=== PATIENT | male | born 1935 | race Caucasian/White ===

== ENCOUNTER → 2018-12-19 | Outpatient (CLI) | payer OTHER, MEDICARE ==
[~2018-12-19] VITALS: Ht 180.3 cm; Wt 87.5 kg
[~2018-12-19] MED LIST: ALLOPURINOL 10100 M1 PO; AMLODIPINE BESY10 MG PO; APAP500 PO; ASA81BEC PO; ASPIRIN325 PO; ATENOLOL 100MG100 M2 PO; AUGMENTIN 500-1 EACH PO; COUMADIN 2.5MG2.5 M1 PO; COUMADIN 5 MG TA5 M1 PO; HYDROCHLOROTH12.5 M2 PO; K-DUR 20 MEQ T20 MEQ PO; KLOR-CON 1010 MEQ PO; LIPITOR 20 MG T20 M1 PO; LIPITOR10 MG PO; LIPITOR20 MG PO; LOPRESSOR100 M1; LOSARTAN POTAS100 MG PO; LOSARTAN-HCTZ1 EAC1 PO; LOVASTAT10; NORVASC10 MG PO; OXYCODON-ACETA1 EAC1 PO; PREDNISONE 5 MG5 M1 PO; TRINATE TABLET1 TAB PO; VITAMIN B-1100 M1 PO; VITAMIN D-32000 UNIT PO; VITAMIN D1000 UNI1 PO
[2018-12-19 09:32] LABS: INR 1.3; PROTIME 13.6 Seconds (9.3-11.4)
--- NOTE | 2018-12-20 15:05 | PATH ---
[facility] [place] [address] PATHOLOGY RPT PROCEDURE Name: ERLINDA CHIN SCOTT Room #: REG [facility]..#: [id number] ������������������ Admission: 12/19/18 ������������������ Date of : 39 Discharge: Report #: [id number] Path Case #: [id number] [facility] Accession Number: [id number] . 01 Material submitted: . PART A: cecum - POLYP AT CECUM X2 PART B: colon - BX POLYP AT PROXIMAL ASCENDING COLON X2. Modifiers: proximal, ascending PART C: colon - POLYP AT MID TRANSVERSE COLON X2. Modifiers: transverse, mid PART D: splenic flexure - BX POLYP AT SPLENIC FLEXURE X4 PART E: colon - POLYP AT 70CM X2 PART F: colon - POLYP AT 60CM . 01 Clinical history: . Pre-OP DX: Screening Post-OP DX: Colon polyps, diverticulosis . 02 Diagnosis: A. Colonic mucosa "polyp at cecum x 2": - Fragments of tubular adenomas. - There is no evidence of high-grade dysplasia or malignancy. . B. Colonic mucosa "biopsy polyp at proximal ascending colon x 2": - Fragments of tubular adenomas. - There is no evidence of high-grade dysplasia or malignancy. . C. Colonic mucosa "polyp at mid transverse colon x 2": - Multiple fragments of tubular adenomas. - There is no evidence of high-grade dysplasia or malignancy. . D. Colonic mucosa "biopsy polyp at splenic flexure x 4": - Fragments of tubular adenomas. - There is no evidence of high-grade dysplasia or malignancy. . E. Colonic mucosa "polyp at 70 cm x 2": - Fragments of tubular adenomas. - There is no evidence of high-grade dysplasia or malignancy. . F. Colonic mucosa "polyp at 60 cm": - Fragments of tubular adenoma. - There is no evidence of high-grade dysplasia or malignancy. (SHA:[facility] 12/20/2018) QTP/12/20/2018 . 02 Electronically signed: . Grupo Abel MD, Pathologist [address] [address] PATHOLOGY RPT PROCEDURE Name: ERLINDA CHIN MORGAN [id number] ������������������ Admission: 12/19/18 ������������������ Date of : 39 Discharge: Report #: [id number] Path Case #: [id number] [facility]- [id number] . 01 Gross description: . A. Received in formalin labeled "[place]in, [place], polyp at cecum x2," are 4 segments of [place] soft tissue measuring 1.0 x 0.9 x 0.6 cm in aggregate dimensions and ranging from 0.4 to 0.6 cm in maximum dimension. The specimen is submitted entirely in cassette A1. . B. Received in formalin labeled "Erlinda Chin, BX polyp at proximal ascending colon x2," are 3 segments of [place] soft tissue measuring 0.9 x 0.9 x 0.3 cm in aggregate dimensions and ranging from 0.4 to 0.7 cm in maximum dimension. The specimen is submitted entirely in B1. . C. Received in formalin labeled "Erlinda Chni, BX polyp at mid transverse colon x2," is a 1.4 x 0.8 x 0.7 cm polypoid piece of [place] soft tissue. The margin is inked and the tissue is sectioned perpendicular to the margin and submitted in its entirely in cassettes C1 and C2. Additionally received in the same container is a 0.8 x 0.6 x 0.5 cm polypoid piece of [place] soft tissue. The margin is inked and the specimen is bisected and entirely submitted in cassettes C3 and C4. Also received in the container is a single segment of [place] soft tissue measuring 0.8 cm in maximum dimension. The specimen is submitted entirely in cassette C5. . D. Received in formalin labeled "Erlinda Chin, BX polyp at splenic flexure x4," are multiple segments of [place] soft tissue measuring 1.4 x 0.8 x 0.2 cm in aggregate dimensions. The specimen is filtered and entirely submitted in cassette D1. . E. Received in formalin labeled "Erlinda Chin, polyp at 70 cm x2," are 5 segments of [place] soft tissue measuring 1.8 x 1.5 x 0.4 cm in aggregate dimensions and ranging from 0.5 to 0.7 cm in maximum dimension. The specimen is submitted entirely in E1. . F. Received in formalin labeled "Erlinda Chin, polyp at 60 cm," is a 1.1 x 0.8 x 0.8 cm polypoid piece of [place] soft tissue. The margin is inked and the tissue is sectioned perpendicular to the margin and submitted in its entirely in cassettes F1 through F3. (TSD; 12/19/2018) TOB/TOB . 02 Pathologist provided ICD-10: D12.0, D12.2, D12.3, D12.6 . 02 CPT . 942098, 572938, 430297, 316528, 201992, 474316 Specimen Comment: A courtesy copy of this report has been sent to Specimen Comment: [phone], . Specimen Comment: Report sent to / DR PLASCENCIA [facility] [address] [place] [address] PATHOLOGY RPT PROCEDURE Name: ERLINDA CHIN MORGAN Room #: REG [facility].#: [id number] ������������������ Admission: 12/19/18 ������������������ Date of : 39 Discharge: Report #: [id number] Path Case #: [id number] Specimen Comment: A duplicate report has been generated due to demographic updates. Performed at: [facility] [address], [place] [id number] MD Chris Villasenor MD Phone: [phone] Performed at: [facility] [address] [place], [place] [id number] MD Claire Sullivan MD Phone: [phone]
--- NOTE | 2018-12-20 16:16 | P ---
[facility] [place] [address] PROCEDURE REPORT Name: ERLINDA CHIN Room #: REG [facility]#: [id number] Admission: 12/19/18 ������������������ Attend Phys: Yobani Styles MD Discharge: ������������������ Date of : 39 Report #: [id number] THIS REPORT FOR: //name// CC: Lizet Styles BRIEF HISTORY: The patient is an 83-year-old male with history of an advanced adenoma requiring surgical resection many years ago. His last colonoscopy was more than 10 years ago. PREOPERATIVE DIAGNOSIS: History of advanced adenoma for high risk screening. POSTOPERATIVE DIAGNOSIS: 1. Multiple colon polyps. 2. Diverticulosis of ileum. MEDICATIONS: Deep sedation with propofol per anesthesia. SPECIMENS: 1. Polyps x 2, cecum. 2. Polyps x 2, proximal ascending colon. 3. Polyps x 2, mid transverse colon. 4. Polyps x 4, splenic flexure. 5. Polyps x 2 at 70 cm. 6. Polyp at 60 cm. ESTIMATED BLOOD LOSS: 3 mL. PROCEDURE: Colonoscopy to cecum and terminal ileum with sterile polypectomy and biopsy. FINDINGS: Prior to propofol sedation, the procedure of colonoscopy was discussed with the patient as well as potential risks and its complications. He indicates he understands and desires to proceed. DESCRIPTION OF PROCEDURE: With the patient in left lateral decubitus position, digital examination was completed, which revealed no abnormalities. Subsequently, the Olympus video colonoscope was introduced in the rectum and advanced under direct vision to the cecum. Done with minimal difficulty. The cecum was identified by the ileocecal valve and the appendiceal orifice. I was able to visualize the distal segment of terminal ileum. Interestingly, he was noted to have diverticula in the distal ileum. At that point, the scope was slowly withdrawn and careful circumferential views were obtained. Upon slow withdrawal of the scope, the patient was noted to have 2 polyps in the cecum, one was about 6 mm in greatest dimension, the other was about 8 mm in greatest dimension. Both removed by cold snare polypectomy. The scope was further [address] [address] PROCEDURE REPORT Name: ERLINDA CHIN COFFEY Room #: REG [facility]#: [id number] Admission: 12/19/18 ������������������ Attend Phys: Yobain Styles MD Discharge: ������������������ Date of : 39 Report #: [id number] withdrawn and in the proximal ascending colon, 2 diminutive polyps was seen and removed with biopsy forceps. In the mid transverse colon, a flat 3 x 6 mm polyp was removed by cold snare polypectomy and a bulky sessile polyp of about 10 mm was removed by hot snare polypectomy. The scope was further withdrawn and at the splenic flexure, 4 polyps were seen. One was removed with biopsy forceps, the other three were removed with cold snare. The smallest one was a diminutive polyp, the others were in the range of about 5-6 mm. All were removed without difficulty. The scope was further withdrawn and 2 sessile polyps in the range of about 5-6 mm removed by cold snare polypectomy at 70 cm. At 60 cm, a 10 x 12 mm sessile polyp on a narrow base was removed by hot snare polypectomy and recovered. The scope was further withdrawn and no additional abnormalities were seen. Scope was withdrawn in the rectum and upon retroflexion, no abnormalities were seen. The scope was withdrawn. The patient tolerated the procedure well. CONDITION OF THE PATIENT UPON DISCHARGE: Following procedure, the patient drowsy, aroused, conversant and will be discharged home when fully ambulatory. INSTRUCTIONS TO THE PATIENT AND FAMILY AT THE TIME OF DISCHARGE: This patient was found to have 13 polyps today. All had a benign appearance. At least two of them were large enough to be considered advanced adenomas. In view of his history and the finding of multiple polyps today, we will have him return in 2 years for high risk screening colonoscopy due to his multiple colon polyps. Last colonoscopy was more than 10 years ago. Withdrawal time from the cecum including the multiple polypectomies was 23 minutes 36 seconds. ��������������������������������������������� <ELECTRONICALLY SIGNED> ���������������������������������������� By: Yobani Styles MD ��������������������������������������������� 12/20/18 1616 [id number] Yobani Styles MD /nt
== END | disposition home or self-care (01) ==
LOC: GI 08:28
PROVIDERS: Specialist
DX: Z12.11 Encounter for screening for malignant neoplasm of colon (principal); Z86.010 Personal history of colon polyps; D12.0 Benign neoplasm of cecum; D12.2 Benign neoplasm of ascending colon; D12.3 Benign neoplasm of transverse colon; D12.4 Benign neoplasm of descending colon; K57.30 Diverticulosis of large intestine without perforation or abscess without bleeding; I10 Essential (primary) hypertension; E78.5 Hyperlipidemia, unspecified; E78.00 Pure hypercholesterolemia, unspecified; Z98.890 Other specified postprocedural states; Z90.49 Acquired absence of other specified parts of digestive tract; Z98.41 Cataract extraction status, right eye; Z98.42 Cataract extraction status, left eye; Z79.899 Other long term (current) drug therapy; Z79.01 Long term (current) use of anticoagulants
CPT/HCPCS: 62110; 62900

== ENCOUNTER 2021-03-31 06:50 | Emergency (ER) | payer OTHER, MEDICARE ==
[~2021-03-31] VITALS: Ht 180.3 cm; Wt 89.4 kg
[2021-03-31] MEDS ORDERED: METOPROLOL SUCC25 M1 PO (07:25)
[2021-03-31] MEDS ORDERED: PROZAC10 M1 PO (07:25)
[2021-03-31] MEDS ORDERED: LOVENOX80 MG/0.8 (07:26)
[2021-03-31 07:38] LABS: ABSOLUTE NEUTROPHILS 4.5 thou/uL (1.4-8.2); EOSINOPHILS 0.6 % (0.0-3.0); HEMATOCRIT 40.9 % (42.0-52.0); HEMOGLOBIN 13.9 gm/dL (14.0-18.0); LYMPHOCYTES 18.4 % (24.0-44.0); MCH 35.6 pg (26.0-34.0); MCHC 33.9 g/dL (28.0-37.0); MCV 105.2 fL (80.0-100.0); MONOCYTES 7.1 % (1.0-8.0); PLATELET COUNT 175 thou/uL (150-400); POLYS 72.9 % (36.0-66.0); RBC 3.89 mil/uL (4.50-6.00); RDW 15.3 % (10.5-14.5); WBC 6.1 thou/uL (4.0-11.0)
[2021-03-31 07:41] LABS: CALCIUM 9.4 mg/dL (8.5-10.1); CREATININE 1.3 mg/dL (0.7-1.3); POTASSIUM 3.7 mmol/L (3.5-5.1)
[2021-03-31 07:45] LABS: INR 1.65; PROTIME 17.6 Seconds (10.5-12.1)
[2021-03-31 08:59] VITALS: BP 150/68
[2021-03-31] MEDS ORDERED: ANALPRAM HC 2.5%4 GM TOP (09:01)
== END 2021-03-31 08:59 | disposition home or self-care (01) ==
LOC: ER 06:50
PROVIDERS: Emergency Medicine
DX: K64.4 Residual hemorrhoidal skin tags (principal); I10 Essential (primary) hypertension; E78.00 Pure hypercholesterolemia, unspecified; Z90.49 Acquired absence of other specified parts of digestive tract; Z79.2 Long term (current) use of antibiotics; Z79.899 Other long term (current) drug therapy